=== PATIENT | male | born 1980 | race Caucasian/White ===

== ENCOUNTER → 2022-11-12 | Outpatient (CLI) | payer OTHER ==
--- NOTE | 2022-11-12 18:45 | CA ---
Exercise Stress Test Report Name: Dario Mg Exam Date: 11/12/2022 08:50 Exam Location: [place] Stress Ht (in): 68 Wt (lb): 233 BSA: 2.18 Ordering Phys: Elbert Puckett MD Referring Phys: Italo, Technologist: Elmer Dumont Age: 42 Gender: M : 1980 Procedure CPT: Indications: R94.31 abn ekg ICD-10 Codes: Patient History: Abnormal EKG Medications: Meds past 24 hrs: Pretest Chest Pain: STRESS TEST Micah Protocol Exercise Duration (min:sec): 12:[address] Depressions (mm): Angina Score: Carvalho Score: Resting HR (bpm): 56 Peak HR (bpm): 142 Resting BP (mmHg): 146 / 96 Peak BP (mmHg): 210 / 93 MPHR: 179 Target HR: 152 % MPHR: 79 METS: 12.1 Total Dose: Peak Dose: Atropine: Double Product: 82743 BP Response: Stress Termination: Fatigue Stress Symptoms: FATIGUE Stress Summary: ECG ANALYSIS Resting ECG: Stress ECG: CONCLUSIONS Excellent exercise tolerance Normal EKG in response to exercise up to the heart rate achieved which is 79% of maximal predicted heart rate Overall indeterminant stress test because the patient achieved only 79% of maximum productive heart rate Dr. Jonathan Agrawal MD (Electronically Signed) Final Date: 12 November 2022 18:45
== END | disposition home or self-care (01) ==
LOC: RADNMMAIN 08:21
PROVIDERS: ATTEND Family Medicine
DX: R94.31 Abnormal electrocardiogram [ECG] [EKG] (principal)
CPT/HCPCS: 93017